=== PATIENT | male | born 1980 | race Caucasian/White ===

== ENCOUNTER 2018-12-30 23:13 | Emergency (ER) | payer SELFPAY ==
[~2018-12-30] VITALS: Ht 182.9 cm; Wt 97.5 kg
--- OUTSIDE RECORDS SUMMARY | 2018-12-30 23:16 | XMS REPORT ---
Author [facility] Unknown Phone Unavailable Care Team Providers Care Health Psychologist Name Role Phone Unavailable Unavailable Payers Payer Name Policy Type Policy Number Effective Date Expiration Date Problems This patient has no known problems. Allergies, Adverse Reactions, Alerts Allergy Name Allergy Type Status Severity Reaction(s) Onset Date Inactive Date Treating Clinician Comments No Known Allergies DA Active U 2018-07-05 00:00:00 No Known Allergies DA Active U 2013-06-01 00:00:00 Medications This patient has no known medications.
[2018-12-30] MEDS ORDERED: ONDANSETRON HCL INJ 2MG/ML 2ML 2 MG/ML VIAL IV STA (23:31)
[2018-12-30] MEDS ORDERED: SODIUM CHLORIDE 0.9% 1000ML 1,000 ML IV ONE (23:45)
[2018-12-30] MEDS ORDERED: ACETAMINOPHEN 325 MG TAB PO ONE (23:45)
[2018-12-31 00:03] LABS: BASOPHILS # (AUTO) 0.1 (0.0-0.1); BASOPHILS % 0.6 % (0.0-1.0); EOSINOPHILS # (AUTO) 0.1 (0.0-0.4); HEMATOCRIT 48.5 % (38.2-49.6); HEMOGLOBIN 17.8 g/dL (14.0-18.0); LYMPHOCYTES # (AUTO) 1.7 (1.0-3.2); LYMPHOCYTES % 20.8 % (18.0-39.1); MEAN CORPUSCULAR HGB CONC 36.7 g/dL (31-35); MONOCYTES # (AUTO) 0.4 (0.2-0.8); MONOCYTES % 5.2 % (4.4-11.3); NEUTROPHILS # (AUTO) 5.8 (2.1-6.9); PLATELET COUNT 237 x10e3/uL (140-360); RED BLOOD COUNT 5.39 x10e6/uL (4.3-5.7); RED CELL DISTRIBUTION WIDTH 11.8 % (11.7-14.4)
[2018-12-31 00:15] LABS: CLARITY,URINE CLEAR (CLEAR); COLOR,URINE YELLOW (YELLOW); LEUKOCYTE ESTERASE ,URINE NEGATIVE (NEGATIVE); NITRITE,URINE NEGATIVE (NEGATIVE); PROTEIN,URINE DIPSTICK NEGATIVE (NEGATIVE)
[2018-12-31 00:16] LABS: BILIRUBIN,URINE NEGATIVE (NEGATIVE); KETONES,URINE NEGATIVE (NEGATIVE); URINE UROBILINOGEN 0.2 mg/dL (0.2 - 1)
[2018-12-31 00:18] LABS: BACTERIA,URINE FEW /HPF; EPITHELIAL CELLS,URINE FEW /LPF
[2018-12-31 00:19] LABS: CALCIUM OXALATE CRYSTALS,UR FEW (FEW)
--- NOTE | 2018-12-31 00:26 | Diagnostic Imaging Report ---
CT Abdomen and Pelvis without contrast INDICATION: Right flank pain and intermittent testicular pain TECHNIQUE: Thin collimation axial images obtained from the diaphragm to the level of the pubic symphysis without nonionic intravenous contrast. Dose reduction techniques used: Automated exposure control, adjustment of the mAs and/or kVp according to patient size, standardized low-dose protocol, and/or iterative reconstruction technique. RADIATION DOSE: Total DLP: 732.15 mGy*cm Estimated effective dose: (DLP x 0.015 x size factor) mSv CTDIvol has been reviewed. It is below the limits set by the Radiation Protocol Committee (RPC). COMPARISON: None. ABDOMEN FINDINGS: Lung Bases: Clear. The visualized portion of the mediastinum is normal. Liver: Normal in attenuation without mass. Gallbladder: Present and appears normal. No ductal dilatation. Pancreas: Normal attenuation without mass. Spleen: Normal size without mass. Adrenal Glands: No evidence for mass. Kidneys: Right: No renal calculus. No cortical mass or hydronephrosis Left: Punctate lower pole calculus. No cortical mass or hydronephrosis Lymph Nodes: No enlarged abdominal or retroperitoneal lymph nodes. Aorta: Normal in diameter. PELVIS FINDINGS: Bowel: Stomach: Normal. Small Bowel: Normal in caliber with normal wall thickness. Small periampullary duodenal diverticulum. Large Bowel: Normal in caliber with normal wall thickness. Scattered diverticula are present without associated inflammation Appendix: Normal. Bladder: Well distended. No mural thickening or intraluminal calcification.. Ureters: No ureteral dilatation or calculus. Peritoneum/retroperitoneum: Calcification in the peritoneum posterior to the bladder to the left of midline measures 6 mm. No free fluid or fluid collection. Bones: Mild degenerative changes of the lower lumbar spine. Soft tissues: Bilobed umbilical hernia contains fat with an aperture of 14 mm. IMPRESSION: 1. Punctate left intrarenal calculus. No obstructive uropathy. 2. Diverticulosis coli. No evidence for bowel obstruction or inflammation. Normal appendix. Signed by: Dr. Cecil Lechuga MD on 12/31/2018 12:23 AM
[2018-12-31 01:05] LABS: CREATINE KINASE MB < 1.00 ng/mL (0-4.3)
--- NOTE | 2018-12-31 01:05 | Diagnostic Imaging Report ---
Testicular/scrotal ultrasound CPT code: 98379, 97851 Indication:Bilateral testicular pain for one month Technique: Multiple static images from testicular ultrasound provided for review. Comparison: No prior studies for comparison. Findings: Right testicle measures 2.1 x 3.0 x 4.6 cm. Epididymal head measures 12 x 7 x 12 mm. The testis is homogeneous in echo texture without mass. Vascular flow documented within. Left testicle measures 1.7 x 2.0 x 2.6 cm. Epididymal head measures 4 x 7 x 10 mm. The testis is homogeneous in echo texture without mass. Vascular flow documented within. Blood flow: Normal color Doppler and spectral Doppler waveforms are present in the testes. No hydrocele. No varicocele. IMPRESSION: 1. No evidence of testicular mass or torsion. 2. Diminutive left testis compared to the right of uncertain etiology. The testis is otherwise normal. 3. No evidence of epididymo-orchitis. Signed by: Dr. Cecil Lechuga MD on 12/31/2018 1:02 AM
[2018-12-31 03:45] VITALS: BP 133/84
[2018-12-31 05:39] LABS: CHLORIDE 102 mmol/L (101-111); POTASSIUM 3.7 mmol/L (3.6-5.1); SODIUM 140 mmol/L (136-144)
[2018-12-31 05:40] LABS: ANION GAP 15.7 mmol/L (8-16); CARBON DIOXIDE 26 mmol/L (22-32)
[2018-12-31 05:41] LABS: BLOOD UREA NITROGEN 8 mg/dL (8-26); BUN/CREATININE RATIO 10 (6-25); CREATININE, SERUM 0.8 mg/dL (0.9-1.3); EST GLOMERULAR FILTRATION RATE > 60 ML/MIN (60-)
[2018-12-31 05:42] LABS: GLUCOSE 254 mg/dL (74-118)
[2018-12-31 06:53] LABS: ALANINE AMINOTRANSFERASE 28 IU/L (0-55); ALBUMIN 4.8 g/dL (3.5-5.0); ALBUMIN/GLOBULIN RATIO 1.4 (0.8-2.0); ALKALINE PHOSPHATASE 60 IU/L (40-150); CALCIUM 10.2 mg/dL (8.4-10.2); CREATINE KINASE 183 IU/L (30-200)
== END 2018-12-31 03:49 | disposition home or self-care (01) ==
LOC: ER 23:13
DX: N30.91 Cystitis, unspecified with hematuria (principal); R00.0 Tachycardia, unspecified; N20.0 Calculus of kidney; F17.200 Nicotine dependence, unspecified, uncomplicated
CPT/HCPCS: 36415; 74176; 76870; 80053; 81001; 82550; 82553; 84484; 85025; 93976; 99284; J7030